=== PATIENT | female | born 1980 | race Caucasian/White ===

== ENCOUNTER 2017-05-21 13:37 | Emergency (ER) | payer OTHER ==
[~2017-05-21] VITALS: Ht 170.2 cm; Wt 86.2 kg
[~2017-05-21 13:37] MED LIST: ADDERALL 20 MG20 MG; AMBIEN 5 MG TABL5 M1 PO; BUTALB-APAP-CA1 EACH PO; ERYTHROMYCIN500 MG PO; HYDROCODONE-AP1 EAC6 PO; IBUPROFEN 800800 M1 PO; LASIX 20 MG TAB20 MG PO; MACROBID 100 M100 M1 PO; NORCO 5-325 TA1 EACH PO; NORFLEX100 MG PO; PRILOSEC 20 MG20 MG PO; TYLENOL325 MG PO; XANAX 0.5 MG0.5 M1; ZANTAC300 MG PO; ZOFRAN ODT4 MG PO; ZOFRAN4 MG PO; ZOLOFT50 MG
[2017-05-21 15:38] VITALS: BP 100/65
[2017-05-24] MEDS ORDERED: KEFLEX500 MG PO (23:19)
== END 2017-05-21 15:39 | disposition home or self-care (01) ==
LOC: ER 13:37
DX: R51 Headache (principal); M54.2 Cervicalgia; F41.9 Anxiety disorder, unspecified; F32.9 Major depressive disorder, single episode, unspecified; F17.210 Nicotine dependence, cigarettes, uncomplicated; Z88.6 Allergy status to analgesic agent; Z88.1 Allergy status to other antibiotic agents; Z88.5 Allergy status to narcotic agent; Z88.0 Allergy status to penicillin; Z88.8 Allergy status to other drugs, medicaments and biological substances; W01.198A Fall on same level from slipping, tripping and stumbling with subsequent striking against other object, initial encounter; Y93.89 Activity, other specified; Y92.89 Other specified places as the place of occurrence of the external cause; Y99.8 Other external cause status

== ENCOUNTER 2020-01-13 15:47 | Emergency (ER) | payer OTHER ==
[~2020-01-13] VITALS: Ht 170.2 cm; Wt 99.8 kg
[~2020-01-13 15:47] MED LIST changes: +KEFLEX500 MG PO
[2020-01-13] MEDS ORDERED: PAXIL20 MG PO (16:08)
[2020-01-13 16:30] LABS: ABSOLUTE NEUTROPHILS 5.7 thou/uL (1.4-8.2); BASOPHILS 0.7 % (0.0-2.0); EOSINOPHILS 1.8 % (0.0-3.0); HEMATOCRIT 43.2 % (37.0-47.0); HEMOGLOBIN 14.9 gm/dL (12.0-15.0); LYMPHOCYTES 28.6 % (24.0-44.0); MCH 32.2 pg (26.0-34.0); MCHC 34.4 g/dL (28.0-37.0); MCV 93.5 fL (80.0-100.0); MONOCYTES 4.9 % (1.0-8.0); PLATELET COUNT 327 thou/uL (150-400); RBC 4.62 mil/uL (4.20-5.00); RDW 13.6 % (10.5-14.5)
[2020-01-13 16:41] LABS: CALCIUM 8.6 mg/dL (8.5-10.1); CREATININE 0.9 mg/dL (0.6-1.0); POTASSIUM 4.1 mmol/L (3.5-5.1)
[2020-01-13 16:47] LABS: ALBUMIN 3.4 g/dL (3.4-5.0); DIRECT BILIRUBIN 0.1 mg/dL (<0.1-0.2); TOTAL BILIRUBIN 0.2 mg/dL (<0.1-1.0); TOTAL PROTEIN 6.8 g/dL (6.4-8.2)
[2020-01-13 16:56] LABS: URINE BILIRUBIN NEGATIVE (Negative); URINE BLOOD TRACE (Negative); URINE CLARITY CLEAR; URINE COLOR YELLOW; URINE GLUCOSE-RANDOM* NEGATIVE (Negative); URINE KETONES NEGATIVE (Negative); URINE LEUKOCYTES-REFLEX NEGATIVE (Negative); URINE NITRITE-REFLEX NEGATIVE (Negative); URINE PROTEIN (DIPSTICK) NEGATIVE (Negative); URINE SPECIFIC GRAVITY >= 1.030 (1.005-1.035); URINE UROBILINOGEN 0.2 E.U./dl (0.2-1.0)
[2020-01-13] MEDS ORDERED: NORCO 5-325 TA1 EAC1 PO (18:58)
[2020-01-13] MEDS ORDERED: ONDANSETRON ODT8 MG PO (18:58)
[2020-01-13] MEDS ORDERED: PRILOSEC OTC20 MG PO (18:58)
[2020-01-13 19:13] VITALS: BP 98/46
== END 2020-01-13 19:35 | disposition home or self-care (01) ==
LOC: ER 15:47
PROVIDERS: Emergency Medicine; Physician Assistant
DX: R10.13 Epigastric pain (principal); R11.2 Nausea with vomiting, unspecified; K92.0 Hematemesis; R31.9 Hematuria, unspecified; K92.1 Melena; Z90.49 Acquired absence of other specified parts of digestive tract; Z79.899 Other long term (current) drug therapy; F17.210 Nicotine dependence, cigarettes, uncomplicated; Z88.1 Allergy status to other antibiotic agents; Z88.0 Allergy status to penicillin; Z88.6 Allergy status to analgesic agent